=== PATIENT | female | born 1980 | race Caucasian/White ===

== ENCOUNTER 2017-02-22 19:00 | Emergency (ER) | payer MEDICAID ==
[~2017-02-22] VITALS: Ht 170.1 cm; Wt 65.8 kg
== END 2017-02-22 19:29 | disposition home or self-care (01) ==
LOC: ED 19:00
DX: S00.93XA Contusion of unspecified part of head, initial encounter (principal); S09.90XA Unspecified injury of head, initial encounter; F17.200 Nicotine dependence, unspecified, uncomplicated; W10.9XXA Fall (on) (from) unspecified stairs and steps, initial encounter; Y93.89 Activity, other specified; Y92.9 Unspecified place or not applicable; Y99.9 Unspecified external cause status

== ENCOUNTER 2018-06-16 12:52 | Inpatient (IN) | payer OTHER ==
[~2018-06-16] VITALS: Ht 167.6 cm; Wt 69.5 kg
--- NOTE | ~2018-06-16 | EKG ---
[place], [place] ELECTROCARDIOGRAM REPORT NAME: QUAN MOROCHO UNIT #: [id number] ROOM: 532 DOCTOR: BRAEDEN DRAFT REPORT BIRTHDATE: [birth year] [facility] Test Date: 2018-06-16 Test Time: 14:31:28 Pat Name: QUAN MOROCHO Department: Room: 532 Gender: F Computer Science Teacher: Eulalia Baires : 1980 Requested By: MEIR WALLIS Order Number: [id number] Reading MD: Andres Selby MD Measurements Intervals [place] Rate: 58 P: 51 ME: 126 QRS: 3 QRSD: 89 T: 13 QT: 427 QTc: 420 Interpretive Statements Sinus rhythm Compared to ECG 06/08/2018 12:38:21 No significant changes Electronically Signed On 06-16-2018 17:42:17 PDT by Andres Selby MD CM:EKGRPT:ELECTROCARDIOGRAM REPORT [id number] MEIR WALLIS MD EPIPHJUAN ALBERTO DRAFT REPORT MEIR WALLIS MD
--- NOTE | ~2018-06-16 | CON ---
[place], [place] REPORT OF CONSULTATION [id number] UNIT #: [id number] ROOM: 532 DOCTOR: EARNESTINE VENTURA MD BIRTHDATE: [birth year] DOS: 06/16/2018 REASON FOR CONSULTATION: Concern for spontaneous bacterial peritonitis. CHIEF COMPLAINT: Abdominal swelling, chest pressure. 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 She was seen by me recently on 06/10/2018 when she presented with lower extremity edema, abdominal swelling and facial swelling. According to the patient, she had a dental procedure done recently a root canal almost 3 weeks ago and she was given prophylactic amoxicillin during the procedure. However, post-procedure, she has been having pain and has not been able to see her dentist. She was having swelling around her face, later abdomen and lower extremities. She was admitted and CAT scan of her abdomen showed diffuse bowel wall thickening, which was likely enteropathy from a systemic disease. She had cirrhosis of liver. Her liver enzymes were slightly elevated. Her hepatitis panel came back positive only for hepatitis C. Rest were negative. She did have leukocytosis of around 13,000 that luda up to 15,000 on presentation. However, she had no fever or chills. She had night sweats. Her biomarkers including CRP and ESR were normal. Her procalcitonin which was a send out test came back slightly elevated only at 0.89. She underwent a transthoracic echocardiogram on 06/09, which showed left ventricle normal size. No regional wall motion abnormalities. VSD with pkgd-nl-bdbam shunting. No evidence of increased RV pressure. IVC dilated. We repeated multiple blood cultures, they were negative and there was no concern for endocarditis at this time. She did have some dysuria and she was treated for her UTI with E. coli. On her discharge, she was given p.o. Augmentin to take care of both her dental abscess as well as UTI and she was asked to follow up with her dentist and an appointment was supposed to be tomorrow and follow up with Infectious Disease for her HIV testing, which came back negative. However, after discharge, the patient noticed more swelling over her abdomen, chest pressure, and lower extremity edema and started having hematuria as well. Hematuria is not constant, but now she has been noticing every time she goes to urinate. She denies having any fever or chills in the morning. Only night sweats. No chest pain, no shortness of breath. No sore throat. On review of her labs, she has a WBC count of 18.6 mostly neutrophilia. Rest of the labs are in process. Blood cultures are in process. C-reactive protein is again low at 0.29. Urinalysis not a good sample, shows only 2-4 wbc's and rbc's. Imaging in process. Chest x-ray shows atelectasis at left base. She has been started on ceftriaxone. PAST MEDICAL HISTORY: Significant for IVDA, cirrhosis of liver as mentioned above, VSD. PAST SURGICAL HISTORY: Dental surgery. PAST SOCIAL HISTORY: History of illicit drug use in the past along with IVDA. [place], [place] REPORT OF CONSULTATION NAME: QUAN MOROCHO UNIT #: [id number] ROOM: [facility] DOCTOR: LORENZO MARTINEZEARNESTINE BIRTHDATE: [birth year] Smoker, quit smoking from last admission. Nonalcoholic. FAMILY HISTORY: Father has history of prostate cancer. Mother has history of hypertension. ALLERGIES: No known drug allergies. MEDICATION: As per the EMR. REVIEW OF SYSTEMS: A 12-point review of systems has been done. Pertinent negative, positive has been included in HPI and is noncontributory. PHYSICAL EXAMINATION: VITAL SIGNS: Temperature 97.9, pulse rate 79, respiratory rate 19, blood pressure 110/68, pulse ox 97% on room air. GENERAL: The patient is alert, oriented x 3, the patient in mild to moderate distress. HEENT: Atraumatic, normocephalic. Eyes: PERRLA, EOMI. Oral exam: Poor dentition and thrush can be seen. CARDIOVASCULAR: S1, S2 normal. Grade 2/6 systolic murmur loudest at the apex radiating to the axilla. LUNGS: Air entry bilaterally equal. No wheeze or crackles. ABDOMEN: Distended, tender to palpation diffusely. No guarding or rigidity. EXTREMITIES: 2+ pitting edema. NEUROLOGIC: Cranial nerves 2-12 grossly intact. LABORATORY DATA AND IMAGING: Mentioned in the HPI. Rest are noncontributory. ASSESSMENT: 1. Hepatitis C with cirrhosis of liver concerning for spontaneous bacterial peritonitis. 2. 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 3. Dental abscess. 4. Rule out cardiorenal syndrome. History of ventricular septal defect. PLAN: 1. At this time, okay to continue ceftriaxone. Add metronidazole. 2. CT scan of abdomen and pelvis in process. Would suggest ascitic tap and send it for cell count, analysis, Gram stain, culture, protein, LDH. 3. Consult Gastroenterology. 4. Although her previous echo was not suggestive of a right-sided heart failure. Would repeat a transthoracic echocardiogram to rule out cardiorenal syndrome/right heart failure. 5. Consider evaluation by dentist while she is in the hospital. 6. Workup of hematuria. 7. Case discussed with Tammie Serna, nurse practitioner. Thank you for your consult. Please call for any questions. [place], [place] REPORT OF CONSULTATION NAME: QUAN MOROCHO [place] UNIT #: [id number] ROOM: 532 DOCTOR: LORENZO MARTINEZ,[facility] BIRTHDATE: [birth year] Blanquita Ventura MD CM:CONSTR:REPORT OF CONSULTATION 1629 07/06/18 0916 interface
[~2018-06-16 12:52] MED LIST: AUGMENTIN 875-875 MG PO; FAMOTIDINE20 M1 PO; Nystatin 100,000 UNI PO; VITAMIN D-32000 UNIT PO
[2018-06-16 12:53] VITALS: BP 110/68
[2018-06-16 13:22] LABS: HEMATOCRIT 36.1 % (37.0-47.0); HEMOGLOBIN 12.7 g/dl (12.0-16.0); MEAN CELL VOLUME 96.3 fl (81.0-99.0); MEAN CORPUSCULAR HGB 33.9 pg (27.0-31.0); MEAN CORPUSCULAR HGB CONC 35.2 g/dl (33.0-37.0); MEAN PLATELET VOLUME 10.8 fl (9.6-12.3); PLATELET COUNT AUTOMATED 148 10*3/uL (130-400); RED BLOOD COUNT 3.75 10*6/uL (4.10-5.10); RED CELL DISTRI WIDTH 13.5 % (0-14.5); WHITE BLOOD COUNT 18.6 10*3/uL (4.8-10.8)
[2018-06-16 13:26] LABS: ACT PARTIAL THROMBO TIME 20.7 SECONDS (20.8-31.5); INTERNATIONAL NORM RATIO 1.1 (2.0-3.5)
[2018-06-16 13:32] LABS: ALBUMIN 2.8 gm/dl (3.1-4.5); ALKALINE PHOSPHATASE 133 U/L (45-117); BUN 13 mg/dl (7-24); CHLORIDE 97 mmol/L (98-107); CREATININE 0.84 mg/dL (0.55-1.02); LIPASE 194 U/L (73-393); POTASSIUM 2.8 mmol/L (3.5-5.1); SGOT/AST 50 IU/L (3-35); SGPT/ALT 156 U/L (12-78); SODIUM 140 mmol/L (136-145); TOTAL PROTEIN 5.7 gm/dL (6.4-8.2)
[2018-06-16 13:45] LABS: PLATELET SUFFICIENCY NORMAL (NORMAL); TOTAL CELLS COUNTED 100 #CELLS; TOXIC GRANULATION SLIGHT
[2018-06-16 14:17] LABS: BILIRUBIN NEGATIVE (NEGATIVE); BLOOD 3+ (NEGATIVE); CLARITY SL CLOUDY (CLEAR); COLOR YELLOW (YELLOW); GLUCOSE NEGATIVE (NEGATIVE); KETONE NEGATIVE (NEGATIVE); LEUKO ESTERASE TRACE (NEGATIVE); NITRITE NEGATIVE (NEGATIVE); PH 7.5 (5.0-9.0); UROBILINOGEN 0.2 E.U./dl (0.2-1.0)
[2018-06-16 14:28] LABS: BACTERIA 2+
[2018-06-16 14:29] LABS: MUCOUS TRACE; RBC 51-100 rbc/hpf (0-2)
[2018-06-16 15:38] VITALS: BP 129/84
[2018-06-16 16:00] VITALS: BP 129/84
[2018-06-16 20:00] VITALS: BP 121/80
[2018-06-17] VITALS: BP 129/81
[2018-06-17 06:03] LABS: HEMATOCRIT 36.2 % (37.0-47.0); HEMOGLOBIN 12.8 g/dl (12.0-16.0); MEAN CELL VOLUME 97.3 fl (81.0-99.0); MEAN CORPUSCULAR HGB 34.4 pg (27.0-31.0); MEAN CORPUSCULAR HGB CONC 35.4 g/dl (33.0-37.0); MEAN PLATELET VOLUME 10.8 fl (9.6-12.3); PLATELET COUNT AUTOMATED 148 10*3/uL (130-400); RED BLOOD COUNT 3.72 10*6/uL (4.10-5.10); WHITE BLOOD COUNT 15.1 10*3/uL (4.8-10.8)
[2018-06-17 06:12] LABS: ALBUMIN 2.6 gm/dl (3.1-4.5); ALKALINE PHOSPHATASE 121 U/L (45-117); BUN 20 mg/dl (7-24); CHLORIDE 99 mmol/L (98-107); CREATININE 0.77 mg/dL (0.55-1.02); PHOSPHOROUS 3.5 mg/dL (2.5-4.9); POTASSIUM 3.3 mmol/L (3.5-5.1); SGOT/AST 45 IU/L (3-35); SGPT/ALT 140 U/L (12-78); SODIUM 140 mmol/L (136-145); TOTAL PROTEIN 5.2 gm/dL (6.4-8.2)
[2018-06-17 06:26] LABS: ACT PARTIAL THROMBO TIME 20.9 SECONDS (20.8-31.5); INTERNATIONAL NORM RATIO 1.1 (2.0-3.5)
[2018-06-17 06:43] LABS: ATYPICAL LYMPHS 1 % (0-0); TOTAL CELLS COUNTED 100 #CELLS
[2018-06-17 06:45] LABS: PLATELET SUFFICIENCY NORMAL (NORMAL)
[2018-06-17 08:00] VITALS: BP 134/76
[2018-06-17 12:00] VITALS: BP 134/82
[2018-06-17] MEDS ORDERED: METRONIDAZOLE500 M1 PO (13:17)
[2018-06-17] MEDS ORDERED: MORPHINE SU2 MG/1 M2 IV (13:17)
== END 2018-06-17 14:15 | disposition short-term general hospital (02) | DRG 871 ==
LOC: ED 12:52 → EDHOLD 14:25 → 5E 14:25
PROVIDERS: Emergency Medicine; Registered Nurse
DX: A41.9 Sepsis, unspecified organism (principal); E43 Unspecified severe protein-calorie malnutrition; K65.2 Spontaneous bacterial peritonitis; E72.20 Disorder of urea cycle metabolism, unspecified; Q21.0 Ventricular septal defect; N39.0 Urinary tract infection, site not specified; J98.11 Atelectasis; K62.5 Hemorrhage of anus and rectum; B96.20 Unspecified Escherichia coli [E. coli] as the cause of diseases classified elsewhere; J06.9 Acute upper respiratory infection, unspecified; I50.9 Heart failure, unspecified; R65.20 Severe sepsis without septic shock; K04.7 Periapical abscess without sinus; E87.6 Hypokalemia; K70.30 Alcoholic cirrhosis of liver without ascites; B19.20 Unspecified viral hepatitis C without hepatic coma; E83.41 Hypermagnesemia; R10.84 Generalized abdominal pain; R07.9 Chest pain, unspecified; Z87.440 Personal history of urinary (tract) infections; Z80.42 Family history of malignant neoplasm of prostate; Z82.49 Family history of ischemic heart disease and other diseases of the circulatory system; Z87.891 Personal history of nicotine dependence; Z68.24 Body mass index [BMI] 24.0-24.9, adult